=== PATIENT | female | born 1955 | race Two or more races ===

== ENCOUNTER 2025-03-08 19:41 | Emergency (ER) | payer OTHER ==
[~2025-03-08] VITALS: Ht 165.1 cm; Wt 73.9 kg
[2025-03-08] MEDS ORDERED: TOPROL XL25 M1 PO (20:04)
[2025-03-08] MEDS ORDERED: JANUMET 50-5001 EACH PO (20:05)
[2025-03-08] MEDS ORDERED: SYNTHROID100 MCG PO (20:05)
[2025-03-08] MEDS ORDERED: ROSUVASTATIN CA10 MG PO (20:05)
[2025-03-08] MEDS ORDERED: XARELTO20 MG PO (20:06)
[2025-03-08] MEDS ORDERED: KETOROLAC TROMETHAMINE 30 MG VIAL ONE (21:01)
[2025-03-08 21:12] LABS: BASO % 0.3 % (0.1-1.2); EOS # 0.13 (0.04-0.54); EOS % 2.2 % (0.7-7.0); LYMPH # 1.84 (1.18-3.74); LYMPH % 31.7 % (19.3-53.1); MEAN PLATELET VOLUME 10.90 fl (9.4-12.4); MONO # 0.51 (0.24-0.82); MONO % 8.8 % (4.7-12.5); NEUT # 3.29 (1.56-6.13); NEUT % 56.7 % (34.0-71.1); RED CELL DISTRIBUTION WIDTH 12.7 % (11.6-14.4)
[2025-03-08 21:39] LABS: ALT/SGPT 17.0 U/L (12-78); AST/SGOT 16.0 U/L (15-37); BILIRUBIN TOTAL 0.48 mg/dL (0.3-1.2); BUN CREA RATIO 23.0 (7.0-25.0); CREATININE SERUM 0.4 mg/dL (0.55-1.02); GFR 158.26; GLOBULINA 3.2 G/DL (2.4-3.5); GLUCOSE FASTING 86.0 mg/dL (65-100); OSMOLALITY SERUM 285.0 MOSM/KG (275-295)
[2025-03-08] MEDS ORDERED: KETOROLAC TROMETHAMINE 30 MG VIAL IV ONE (22:45)
== END 2025-03-09 01:33 | disposition home or self-care (01) ==
LOC: ER 19:41
PROVIDERS: Preventive Medicine Public Health & General Preventive Medicine
DX: R10.9 Unspecified abdominal pain (principal); I10 Essential (primary) hypertension; E03.8 Other specified hypothyroidism; E11.9 Type 2 diabetes mellitus without complications; Z79.84 Long term (current) use of oral hypoglycemic drugs
CPT/HCPCS: 36415; 74177; Q9965